=== PATIENT | female | born 1935 | race Caucasian/White ===

== ENCOUNTER 2021-10-02 12:20 | Inpatient (IN) ==
[2021-10-02] MEDS ORDERED: Mag Hydrox/Al Hydrox/Simeth 30 ML UDC PO PRN (13:44)
[2021-10-02] MEDS ORDERED: Melatonin 3 MG TABLET PO PRN (13:44)
[2021-10-02] MEDS ORDERED: MOM Conc 10 ML UD.LIQ PO PRN (13:44)
[2021-10-02] MEDS ORDERED: Ondansetron ODT 4 MG TAB.RAPDIS SL PRN (13:44)
[2021-10-02] MEDS ORDERED: Naloxone 0.4 MG/ML INJ IVP PRN (13:44)
[2021-10-02] MEDS ORDERED: *HR* OxyCODONE Immed Rel 5 MG TABLET PO PRN (13:47)
[2021-10-02] MEDS: Albumin 25% 25gram/100mL 25 GM/100 ML IV.SOLN IVPB SCH (15:58)
[2021-10-02 16:58] LABS: Basophils % 0.3 %; Eosinophils # 0.1 K/mcL (0.0-0.6); Eosinophils % 0.7 %; Hematocrit 34.4 % (35.3-44.9); Hemoglobin 11.5 g/dL (11.5-15.4); Immature Granulocytes % 0.5 % (0-4); Lymphocytes # 1.8 K/mcL (0.6-4.6); Lymphocytes % 13.9 %; Mean Corpuscular HGB Conc 33.4 g/dL (31.6-35.5); Mean Corpuscular Hemoglobin 32.1 pg (28.0-33.3); Mean Corpuscular Volume 96.1 fL (83.0-100.0); Mean Platelet Volume 9.9 fL (9.4-12.4); Monocytes # 0.9 K/mcL (0.0-1.3); Neutrophils # 10.2 K/mcL (1.6-8.9); Platelet Count 144 K/mcL (140-400); Red Blood Count 3.58 M/mcL (3.82-4.97); Red Cell Distribution Width 12.7 % (11.5-14.5); Segmented Neutrophils % 77.6 %; White Blood Count 13.2 K/mcL (4.3-11.1)
[2021-10-02 17:25] LABS: BUN/Creatinine Ratio 21 (6-26); Blood Urea Nitrogen 16 mg/dL (8-23); Calcium 8.6 mg/dL (8.6-10.3); Carbon Dioxide 22 mEq/L (23-29); Chloride 100 mEq/L (98-107); Glucose 142 mg/dL (70-105); Osmolality,Calculated 278 (280-300); Sodium 132 mEq/L (136-145); eGFR For African Americans > 60 (> 60); eGFR For Non-African Americans > 60 (> 60)
[2021-10-02] MEDS: *HR* OxyCODONE Immed Rel 5 MG TABLET PO PRN (17:57)
[2021-10-02] MEDS: amLODIPine 5 MG TABLET PO SCH (17:57)
[2021-10-02] MEDS ORDERED: Latanoprost 2.5 ML BOTTLE LEFT EYE SCH (21:00)
[2021-10-02] MEDS: Metoprolol XL (24 HR) Succ 50 MG TAB.ER.24H PO SCH (21:29)
[2021-10-03] MEDS: Albumin 25% 25gram/100mL 25 GM/100 ML IV.SOLN IVPB SCH ×2 (00:06→07:43)
[2021-10-03 06:36] LABS: Basophils % 0.3 %; Eosinophils # 0.2 K/mcL (0.0-0.6); Eosinophils % 1.9 %; Hematocrit 33.9 % (35.3-44.9); Hemoglobin 11.4 g/dL (11.5-15.4); Immature Granulocytes % 0.3 % (0-4); Lymphocytes # 1.9 K/mcL (0.6-4.6); Lymphocytes % 18.5 %; Mean Corpuscular HGB Conc 33.6 g/dL (31.6-35.5); Mean Corpuscular Hemoglobin 32.3 pg (28.0-33.3); Mean Platelet Volume 9.7 fL (9.4-12.4); Monocytes # 0.9 K/mcL (0.0-1.3); Monocytes % 8.8 %; Platelet Count 154 K/mcL (140-400); Red Blood Count 3.53 M/mcL (3.82-4.97); Red Cell Distribution Width 12.9 % (11.5-14.5); Segmented Neutrophils % 70.2 %
[2021-10-03 06:54] LABS: BUN/Creatinine Ratio 18 (6-26); Blood Urea Nitrogen 14 mg/dL (8-23); Calcium 9.2 mg/dL (8.6-10.3); Carbon Dioxide 26 mEq/L (23-29); Chloride 101 mEq/L (98-107); Glucose 102 mg/dL (70-105); Osmolality,Calculated 281 (280-300); Sodium 135 mEq/L (136-145); eGFR For African Americans > 60 (> 60); eGFR For Non-African Americans > 60 (> 60)
[2021-10-03] MEDS: amLODIPine 5 MG TABLET PO SCH (07:47)
[2021-10-03] MEDS: Metoprolol XL (24 HR) Succ 50 MG TAB.ER.24H PO SCH ×2 (07:47→19:53)
[2021-10-03] MEDS: *HR* OxyCODONE Immed Rel 5 MG TABLET PO PRN (08:05)
[2021-10-03] MEDS ORDERED: *HR* FentaNYL (PF) 100 MCG/2 ML VIAL IVP PRN ×2 (08:51→14:28)
[2021-10-03] MEDS ORDERED: Ringers Solution, Lactated 1,000 ML IVC SCH (10:00)
[2021-10-03] MEDS ORDERED: ROPIVACAINE/PF/NS 0.25% 1 EACH SYRINGE INTRAART ONE (10:06)
[2021-10-03] MEDS ORDERED: *HR* Rocuronium Bromide 50 MG/5 ML VIAL ONE (10:36)
[2021-10-03] MEDS ORDERED: *HR* FentaNYL (PF) 100 MCG/2 ML VIAL ONE ×2 (10:36→11:51)
[2021-10-03] MEDS ORDERED: Lidocaine -MPF 2% 5 ML VIAL ONE (10:36)
[2021-10-03] MEDS ORDERED: Lidocaine HCL 4 ML Topical Solution (Laryng-O-Jet Kit Sterile Pak) TP ONE (10:36)
[2021-10-03] MEDS ORDERED: *HR* Propofol 200 MG/20 ML VIAL IVP ONE (10:36)
[2021-10-03] MEDS ORDERED: Ondansetron 4 MG/2 ML VIAL ONE (10:36)
[2021-10-03] MEDS ORDERED: *HR* Etomidate 40 MG/20 ML VIAL IVP ONE (10:41)
[2021-10-03] MEDS ORDERED: *HR* Vasopressin 20 UNIT/ML VIAL ONE (10:43)
[2021-10-03] MEDS ORDERED: Albumin Human 5% 0 GM/0 ML IV.SOLN ONE (10:43)
[2021-10-03] MEDS ORDERED: *HR* Phenylephrine 10 MG/ML VIAL ONE (10:47)
[2021-10-03] MEDS ORDERED: Tranexamic Acid 1,000 MG/10 ML VIAL ONE (10:51)
[2021-10-03] MEDS ORDERED: Vancomycin 1,000 MG VIAL ONE (10:59)
[2021-10-03] MEDS ORDERED: Ethanol\\Acetic Acid\\Na Ace\\Ben 1,000 ML IRRIG.SOLN IR ONE (12:18)
[2021-10-03] MEDS ORDERED: EPHEDrine 50 MG/ML VIAL ONE (12:21)
[2021-10-03] MEDS ORDERED: Sugammadex Sodium 200 MG/2 ML VIAL IV ONE (12:23)
[2021-10-03] MEDS ORDERED: *HR* Metoprolol 5 MG/5 ML VIAL IVP ONE (13:15)
[2021-10-03] MEDS: *HR* HYDROmorphone (PF) 1 MG/ML SYRINGE IVP PRN ×2 (13:26→13:40)
[2021-10-03] MEDS ORDERED: Melatonin 3 MG TABLET PO PRN (14:28)
[2021-10-03] MEDS ORDERED: Ondansetron ODT 4 MG TAB.RAPDIS SL PRN (14:28)
[2021-10-03] MEDS ORDERED: Naloxone 0.4 MG/ML INJ IVP PRN (14:28)
[2021-10-03] MEDS ORDERED: MOM Conc 10 ML UD.LIQ PO PRN (14:28)
[2021-10-03] MEDS ORDERED: Mag Hydrox/Al Hydrox/Simeth 30 ML UDC PO PRN (14:28)
[2021-10-03] MEDS: CeFAZolin 2 GM/120 ML BAG IVPB SCH (17:10)
[2021-10-03] MEDS: Ringers Solution, Lactated 1,000 ML IVC SCH (17:57)
[2021-10-03] MEDS ORDERED: Latanoprost 2.5 ML BOTTLE LEFT EYE SCH (21:00)
[2021-10-04] MEDS: CeFAZolin 2 GM/120 ML BAG IVPB SCH (00:52)
[2021-10-04 04:51] LABS: Basophils % 0.1 %; Hematocrit 31.2 % (35.3-44.9); Hemoglobin 10.8 g/dL (11.5-15.4); Immature Granulocytes % 0.4 % (0-4); Lymphocytes # 0.8 K/mcL (0.6-4.6); Mean Corpuscular HGB Conc 34.6 g/dL (31.6-35.5); Mean Corpuscular Hemoglobin 32.4 pg (28.0-33.3); Mean Corpuscular Volume 93.7 fL (83.0-100.0); Mean Platelet Volume 9.8 fL (9.4-12.4); Monocytes # 1.2 K/mcL (0.0-1.3); Monocytes % 7.5 %; Platelet Count 179 K/mcL (140-400); Red Blood Count 3.33 M/mcL (3.82-4.97); Red Cell Distribution Width 12.4 % (11.5-14.5)
[2021-10-04 04:53] LABS: Neutrophils # 13.8 K/mcL (1.6-8.9); White Blood Count 15.8 K/mcL (4.3-11.1)
[2021-10-04 05:07] LABS: BUN/Creatinine Ratio 25 (6-26); Blood Urea Nitrogen 23 mg/dL (8-23); Calcium 8.9 mg/dL (8.6-10.3); Carbon Dioxide 23 mEq/L (23-29); Chloride 101 mEq/L (98-107); Glucose 134 mg/dL (70-105); Osmolality,Calculated 280 (280-300); Potassium 4.3 mEq/L (3.5-5.1); Sodium 132 mEq/L (136-145); eGFR For African Americans > 60 (> 60); eGFR For Non-African Americans 59 (> 60)
[2021-10-04] MEDS: *HR* Enoxaparin 40 MG/0.4 ML SYRINGE SQ SCH (05:41)
[2021-10-04] MEDS ORDERED: *HR* Enoxaparin 40 MG/0.4 ML SYRINGE SQ SCH (06:00)
[2021-10-04] MEDS: Aspirin Enteric Coated 325 MG Tablet PO SCH (07:50)
[2021-10-04] MEDS: *HR* OxyCODONE Immed Rel 5 MG TABLET PO PRN ×3 (07:51→20:26)
[2021-10-04] MEDS: amLODIPine 5 MG TABLET PO SCH (07:51)
[2021-10-04] MEDS: Metoprolol XL (24 HR) Succ 50 MG TAB.ER.24H PO SCH ×2 (07:51→21:50)
[2021-10-04] MEDS: Ringers Solution, Lactated 1,000 ML IVC SCH (14:07)
[2021-10-05] MEDS: *HR* Enoxaparin 40 MG/0.4 ML SYRINGE SQ SCH (05:09)
[2021-10-05] MEDS: amLODIPine 5 MG TABLET PO SCH (08:31)
[2021-10-05] MEDS: Aspirin Enteric Coated 325 MG Tablet PO SCH (08:31)
[2021-10-05] MEDS: Metoprolol XL (24 HR) Succ 50 MG TAB.ER.24H PO SCH (08:32)
[2021-10-05 08:34] LABS: Basophils % 0.3 %; Eosinophils # 0.2 K/mcL (0.0-0.6); Hematocrit 32.7 % (35.3-44.9); Immature Granulocytes % 0.3 % (0-4); Lymphocytes # 2.2 K/mcL (0.6-4.6); Lymphocytes % 15.1 %; Mean Corpuscular HGB Conc 33.6 g/dL (31.6-35.5); Mean Corpuscular Hemoglobin 31.6 pg (28.0-33.3); Mean Platelet Volume 9.8 fL (9.4-12.4); Monocytes # 1.4 K/mcL (0.0-1.3); Monocytes % 9.7 %; Neutrophils # 10.6 K/mcL (1.6-8.9); Platelet Count 203 K/mcL (140-400); Red Blood Count 3.48 M/mcL (3.82-4.97); Segmented Neutrophils % 73.6 %; White Blood Count 14.4 K/mcL (4.3-11.1)
[2021-10-05 08:47] LABS: BUN/Creatinine Ratio 32 (6-26); Blood Urea Nitrogen 30 mg/dL (8-23); Calcium 8.8 mg/dL (8.6-10.3); Carbon Dioxide 24 mEq/L (23-29); Chloride 101 mEq/L (98-107); Glucose 107 mg/dL (70-105); Osmolality,Calculated 281 (280-300); Potassium 4.2 mEq/L (3.5-5.1); Sodium 132 mEq/L (136-145); eGFR For African Americans > 60 (> 60); eGFR For Non-African Americans 56 (> 60)
[2021-10-05] MEDS ORDERED: Ketorolac 30 MG/ML VIAL IVP ONE (09:44)
[2021-10-05 09:47] VITALS: BP 110/67; PULSE 69; TEMP 98.5; O2SAT 97
[2021-10-05 13:11] LABS: Influenza A PCR Negative (Negative); Influenza B PCR Negative (Negative); Resp. Syncytial Virus PCR Negative (Negative)
[2021-10-05 13:19] LABS: SARS-CoV-2 by PCR (In House) Negative (Negative)
== END 2021-10-05 14:30 | DRG 522 ==
LOC: 4WAOSI → SUATTDRO 17:44
PROVIDERS: ADMIT Internal Medicine; ATTEND Internal Medicine